=== PATIENT | male | born 1990 | race Caucasian/White ===

== ENCOUNTER 2017-01-18 10:05 | Emergency (ER) | payer OTHER ==
[2017-01-18 10:20] VITALS: RESP 16; TEMP 98.4; O2SAT 96
[2017-01-18] MEDS ORDERED: TDAP ADULT 0.5 ML INJ (BOOSTRIX) IM ONE (12:29)
--- NOTE | 2017-01-18 12:29 | EDPHY ---
H & P Time Seen by Provider: 01/18/17 10:36 HPI/ROS: CHIEF COMPLAINT: Laceration left arm HISTORY OF PRESENT ILLNESS: 26-year-old male presents to the emergency department with a laceration to his left forearm. 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 The incident happened just prior to arrival. He is right-hand dominant. He is unsure of his last tetanus shot. He denies numbness or tingling in his fingers, retained foreign body or other injuries. ROS: Denies numbness or tingling in his fingers, pain in his left wrist or elbow. 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 Injury to fashion muscle belly exposure noted. Flexor tendon is not injured. He has full range of motion of the left upper extremity. Normal sensation to light touch with normal 2 point discrimination. Strong radial pulse at the left wrist. No palpable bony tenderness. Full range of motion. Laceration does not extend into the wrist or elbow. Constitutional: Initial Vital Signs Temperature (C) 36.9 C 01/18/17 10:19 Heart Rate 71 01/18/17 10:19 Respiratory Rate 16 01/18/17 10:19 Blood Pressure 150/71 H 01/18/17 10:19 O2 Sat (%) 96 01/18/17 10:19 O2 Delivery Mode Room Air Allergies/Adverse Reactions: amoxicillin [From Augmentin] Allergy (Verified 01/18/17 10:19) clavulanic acid [From Augmentin] Allergy (Verified 01/18/17 10:19) Sulfa (Sulfonamide Antibiotics) Allergy (Verified 01/18/17 10:19) Home Medications: Medication Instructions Recorded Cephalexin [Keflex] 500 mg PO QID #28 cap 01/18/17 MDM/Departure - MDM Procedures: Laceration repair. Verbal consent was obtained from the patient. The 7 cm laceration on the left forearm was anesthetized using 1% lidocaine with epinephrine. The wound was irrigated with saline, draped and explored to its base with a gloved finger. Laceration to the fascia noted. Tendon is identified without injury. The wound was repaired with 4 0 Vicryl, 25 sutures in fascia and subcutaneous layer. 4 0 Ethilon, 16 sutures. The wound repair was complex. The procedure was performed by myself. Patient was placed in volar Velcro wrist splint to help minimize flexion. 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 Medications Given: Discontinued Medications Diphtheria/Tetanus/Acell Pertussis (Boostrix) 0.5 ml IM .ONCE ONE Stop: 01/18/17 12:30 Last Admin: 01/18/17 12:39 Dose: 0.5 ml ED Course/Re-evaluation: 26-year-old male presents with large left forearm laceration. The wound was repaired, see procedure note. He was started on Keflex to prevent infection. His tetanus shot was updated. He was placed in volar Velcro splint to prevent flexion and extension of his left wrist. Was encouraged to return to the emergency department if he notices any signs or symptoms of infection or any other concerns. - Depart Disposition: Home, Routine, Self-Care Clinical Impression: Laceration of left forearm Qualifiers: Encounter type: initial encounter Qualified Code(s): S51.812A - Laceration without foreign body of left forearm, initial encounter Condition: Good Instructions: Care For Your Stitches (ED), Laceration (ED), Acute Wounds (ED) Additional Instructions: Keflex 500 mg 4 times daily for 1 week to prevent infection. Wrist splint to help minimize flexion and extension of the wrist well the sutures are in place. Avoid any heavy lifting until the wound has completely healed and the sutures have been removed. Return to the emergency department if he notices any signs or symptoms of infection such as redness, swelling, increased pain, fever, purulent drainage. Wound Care Follow-Up: Removal of sutures in 10 days. Suture removal is complimentary in uncomplicated cases. Infection or abnormal findings would require reevaluation by the MD. In that case, you may be billed. Your given a tetanus shot today in the emergency department. Prescriptions: Cephalexin [Keflex] 500 mg PO QID #28 cap Referrals: Viktor Mars MD [Medical Doctor] - 2-3 days, call for appt. (Orthopedic surgeon on-call)
[2017-01-18 12:36] VITALS: BP 150/93; PULSE 52
== END 2017-01-18 12:47 | disposition home or self-care (01) ==
PROC: 0JQH0ZZ Repair Left Lower Arm Subcutaneous Tissue and Fascia, Open Approach (ICD-10-PCS; principal; 2017-01-18)
PROC: 0HQEXZZ Repair Left Lower Arm Skin, External Approach (ICD-10-PCS; principal; 2017-01-18)
DX: S51.812A Laceration without foreign body of left forearm, initial encounter (principal); F17.200 Nicotine dependence, unspecified, uncomplicated; Z23 Encounter for immunization; W45.8XXA Other foreign body or object entering through skin, initial encounter; Y92.69 Other specified industrial and construction area as the place of occurrence of the external cause; Y99.0 Civilian activity done for income or pay; Y93.89 Activity, other specified
CPT/HCPCS: L3908